=== PATIENT | female | born 1975 | race African-American/Black ===

== ENCOUNTER 2022-02-19 14:14 | Emergency (ER) | payer OTHER, SELFPAY ==
[2022-02-19 14:18] VITALS: BP 141/84; PULSE 104; RESP 20; TEMP 37; O2SAT 100; BMI 37.4
--- NOTE | 2022-02-19 14:22 | ED_ITS ---
HPI - General Adult General Chief complaint: Dyspnea <LAURIE Tran - Last Filed: 03/04/22 09:06> Stated complaint: Trouble breathing <LAURIE Tran - Last Filed: 03/04/22 09:06> Time Seen by Provider: 02/19/22 19:16 <LAURIE Tran - Last Filed: 03/04/22 09:06> Source: patient <Chase Bose MD - Last Filed: 03/04/22 17:18> Mode of arrival: ambulatory <Chase Bose MD - Last Filed: 03/04/22 17:18> Limitations: no limitations <Chase Bose MD - Last Filed: 03/04/22 17:18> History of Present Illness HPI narrative: Patient complaining of cough since she had COVID about 6 weeks ago going away no fever no chills feels short of breath with wheezing patient does have history of asthma used to use inhaler off and on but this time after COVID persistently coughing a lot <Chase Bose MD - Last Filed: 03/04/22 17:18> Related Data Home medications: Previous Rx's Medication Instructions Recorded albuterol sulfate 2.5 mg/3 mL 2.5 mg (3 mL) inhalation Q4-6H PRN 02/19/22 (0.083 %) solution for nebulization shortness of breath or wheezing #90 mL benzonatate 200 mg capsule 200 mg PO TID PRN cough #30 caps 02/19/22 cefuroxime axetil 500 mg tablet 500 mg PO BID #14 tabs 02/19/22 <LAURIE Tran - Last Filed: 03/04/22 09:06> Allergies/adverse reactions: Allergies Allergy/AdvReac Type Severity Reaction Status Date / Time food allergies Allergy Unknown Uncoded 06/12/17 00:00 Tetanus Toxoid Adsorbed Allergy Unknown Uncoded 06/12/17 00:00 <LAURIE Tran - Last Filed: 03/04/22 09:06> Review of Systems Review of Systems: Yes all other systems are reviewed and are negative <Chase Bose MD - Last Filed: 03/04/22 17:18> [facility] Social History Social History: Social History Alcohol intake: never Smoked in Last 30 Days: No Use of substances other than those prescribed or required for medical reasons: No Advance Directives: No Advance Directives Information Provided: No Patient : No <LAURIE Tran - Last Filed: 03/04/22 09:06> Physical Exam ED Vital Signs: Vital Signs - 24 hr 02/19/22 14:18 Temperature 98.6 F Pulse Rate 104 H Respiratory Rate 20 Blood Pressure 141/84 H Pulse Oximetry 100 Oxygen Delivery Method Room Air BMI result Body Mass Index 37.4 <LAURIE Tran - Last Filed: 03/04/22 09:06> Vital Signs - 24 hr 02/19/22 14:18 Temperature 98.6 F Pulse Rate 104 H Respiratory Rate 20 Blood Pressure 141/84 H Pulse Oximetry 100 Oxygen Delivery Method Room Air BMI result Body Mass Index 37.4 <Chase Bose MD - Last Filed: 03/04/22 17:18> Appearance: Alert. Oriented X3. No acute distress. Eyes: PERRLA, No Nystagmus ENT: Pharynx normal. Oral Mucosa moist Neck: Normal inspection. Neck supple. CVS: Normal heart rate and rhythm. Pulses normal. Respiratory: No respiratory distress. Equal air entry bilateral, bilateral prolonged expiration with frequent cough Abdomen: Soft and nontender. Bowel sounds are present, Skin: Skin warm and dry. Normal skin color. Normal skin turgor. Extremities: No lower extremity edema. No calf tenderness Neuro: Oriented X 3. <Chase Bose MD - Last Filed: 03/04/22 17:18> Course Course Course Narrative: EVA; 46-year-old female recently traveled from [place] on the presents to the ED for pleurisy for the past 3 days. Patient denies any fever or chills. Patient had COVID 6 weeks ago. Physical exam negative for any leg swelling or calf pain. Lungs are clear. EKG, troponin, BNP, D-dimer, and chest x-ray ordered. <LAURIE Tran - Last Filed: 03/04/22 09:06> Medications Administered Discontinued Medications Generic Name Dose Route Start Last Admin Trade Name Freq PRN Reason Stop Dose Admin Albuterol Sulfate 2 puff 02/19/22 19:50 02/19/22 20:17 Albuterol Sulfate 90 Mcg 8 Gm Inhaler INHALE 02/19/22 19:51 2 puff ONCE ONE Administration Cefuroxime Axetil 500 mg 02/19/22 19:49 02/19/22 20:16 Cefuroxime Axetil 500 Mg Tablet PO 02/19/22 19:50 500 mg ONCE ONE Administration Guaifenesin/Codeine Phosphate 10 ml 02/19/22 19:49 02/19/22 20:16 Guaifen/Codeine Sf 200/20/10ml 10 Ml Liquid PO 02/19/22 19:50 10 ml ONCE ONE Administration <LAURIE Tran - Last Filed: 03/04/22 09:06> Medications Administered Discontinued Medications Generic Name Dose Route Start Last Admin Trade Name Humzaq PRN Reason Stop Dose Admin Albuterol Sulfate 2 puff 02/19/22 19:50 02/19/22 20:17 Albuterol Sulfate 90 Mcg 8 Gm Inhaler INHALE 02/19/22 19:51 2 puff ONCE ONE Administration Cefuroxime Axetil 500 mg 02/19/22 19:49 02/19/22 20:16 Cefuroxime Axetil 500 Mg Tablet PO 02/19/22 19:50 500 mg ONCE ONE Administration Guaifenesin/Codeine Phosphate 10 ml 02/19/22 19:49 02/19/22 20:16 Guaifen/Codeine Sf 200/20/10ml 10 Ml Liquid PO 02/19/22 19:50 10 ml ONCE ONE Administration <Chase Bose MD - Last Filed: 03/04/22 17:18> Medical Decision Making Medical Decision Making [facility] Narrative: Patient include acute bronchitis with history of asthma will discharge patient home on Ceftin, inhaler and cough drops <Chase Bose MD - Last Filed: 03/04/22 17:18> Lab Data MDM Lab Attestation statement: I reviewed the patient's lab results. <Chase Bose MD - Last Filed: 03/04/22 17:18> Result Diagrams: 02/19/22 14:53 02/19/22 14:53 <LAURIE Tran - Last Filed: 03/04/22 09:06> Labs: Lab Results 02/19/22 02/19/22 02/19/22 Range/Units 14:49 14:53 14:53 WBC 3.5 L (4.8-10.8) X10*3/uL RBC 4.60 (4.20-5.50) X10*6/uL Hgb 11.6 L (12.0-16.0) g/dl Hct 36.1 L (37.0-47.0) % MCV 78.5 L (80.0-98.0) fL MCH 25.2 L (27.0-33.0) pg MCHC 32.1 (31.0-35.0) g/dl RDW 15.3 (11.0-16.0) % Plt Count 308 (160-400) X10*3/uL MPV 9.3 L (9.4-12.3) fL Immature Gran % (Auto) 0.0 (0.0-0.4) % Neut % (Auto) 42.3 L (45-73) % Lymph % (Auto) 39.2 (20-40) % [place] % (Auto) 14.8 H (2-11) % Eos % (Auto) 3.1 (0-4) % Baso % (Auto) 0.6 (0-2) % Lymph # (Auto) 1.4 (1.2-4.9) X10*3/uL [place] # (Auto) 0.5 (0.1-1.2) X10*3/uL Eos # (Auto) 0.1 (0.0-0.4) X10*3/uL Baso # (Auto) 0.0 (0.0-0.2) X10*3/uL Abs Immat Gran (auto) 0.00 (0.00-0.03) X10*3/uL Absolute Neuts (auto) 1.5 L (2.0-8.3) x10*3/uL Absolute Nucleated RBC 0.000 (0.0-0.012) X10*3/uL Nucleated RBC % (auto) 0.0 (0.0-0.2) /100WBC PT 11.9 (10.0-13.1) SEC INR 1.0 (0.9-1.1) APTT 27.1 (26.0-36.4) SEC D-Dimer High Sensitivty 256 NG/ML Sodium (135-145) mmol/L Potassium (3.3-5.1) mmol/L Chloride (96-108) mmol/L Carbon Dioxide (22-29) mmol/L Anion Gap (12-20) BUN (9-16) mg/dL Creatinine (0.5-1.4) mg/dL Estim Creat Clear Calc Estimated GFR Random Glucose (60-115) mg/dL Calcium (8.4-10.2) mg/dL Total Bilirubin (0.0-1.0) mg/dL AST (5-31) U/L ALT (0-31) U/L Alkaline Phosphatase (39-117) U/L Troponin I High Sens (<3.5-17.0) ng/L B-Natriuretic Peptide (<100) pg/mL Total Protein (6.5-8.0) g/dL Albumin (3.5-5.0) g/dL Influenza Type A (PCR) NEGATIVE (Negative) Influenza Type B (PCR) NEGATIVE (Negative) RSV RNA Qual (PCR) NEGATIVE (Negative) SARS-CoV-2 RNA (RT-PCR) NEGATIVE (Negative) 02/19/22 02/19/22 02/19/22 Range/Units 14:53 14:53 14:54 WBC (4.8-10.8) X10*3/uL RBC (4.20-5.50) X10*6/uL Hgb (12.0-16.0) g/dl Hct (37.0-47.0) % MCV (80.0-98.0) fL MCH (27.0-33.0) pg MCHC (31.0-35.0) g/dl RDW (11.0-16.0) % Plt Count (160-400) X10*3/uL MPV (9.4-12.3) fL Immature Gran % (Auto) (0.0-0.4) % Neut % (Auto) (45-73) % Lymph % (Auto) (20-40) % [place] % (Auto) (2-11) % Eos % (Auto) (0-4) % Baso % (Auto) (0-2) % Lymph # (Auto) (1.2-4.9) X10*3/uL [place] # (Auto) (0.1-1.2) X10*3/uL Eos # (Auto) (0.0-0.4) X10*3/uL Baso # (Auto) (0.0-0.2) X10*3/uL Abs Immat Gran (auto) (0.00-0.03) X10*3/uL Absolute Neuts (auto) (2.0-8.3) x10*3/uL Absolute Nucleated RBC (0.0-0.012) X10*3/uL Nucleated RBC % (auto) (0.0-0.2) /100WBC PT (10.0-13.1) SEC INR (0.9-1.1) APTT (26.0-36.4) SEC D-Dimer High Sensitivty NG/ML Sodium 137 (135-145) mmol/L Potassium 3.9 (3.3-5.1) mmol/L Chloride 103 (96-108) mmol/L Carbon Dioxide 27 (22-29) mmol/L Anion Gap 11 L (12-20) BUN 13 (9-16) mg/dL Creatinine 0.83 (0.5-1.4) mg/dL Estim Creat Clear Calc 98.1 Estimated GFR > 60 Random Glucose 115 (60-115) mg/dL Calcium 9.4 (8.4-10.2) mg/dL Total Bilirubin 0.3 (0.0-1.0) mg/dL AST 20 (5-31) U/L ALT 18 (0-31) U/L Alkaline Phosphatase 87 (39-117) U/L Troponin I High Sens < 3.5 (<3.5-17.0) ng/L B-Natriuretic Peptide < 10 (<100) pg/mL Total Protein 6.9 (6.5-8.0) g/dL Albumin 4.2 (3.5-5.0) g/dL Influenza Type A (PCR) (Negative) Influenza Type B (PCR) (Negative) RSV RNA Qual (PCR) (Negative) SARS-CoV-2 RNA (RT-PCR) (Negative) <LAURIE Tran - Last Filed: 03/04/22 09:06> Lab Results 02/19/22 02/19/22 02/19/22 Range/Units 14:49 14:53 14:53 WBC 3.5 L (4.8-10.8) X10*3/uL RBC 4.60 (4.20-5.50) X10*6/uL Hgb 11.6 L (12.0-16.0) g/dl Hct 36.1 L (37.0-47.0) % MCV 78.5 L (80.0-98.0) fL MCH 25.2 L (27.0-33.0) pg MCHC 32.1 (31.0-35.0) g/dl RDW 15.3 (11.0-16.0) % Plt Count 308 (160-400) X10*3/uL MPV 9.3 L (9.4-12.3) fL Immature Gran % (Auto) 0.0 (0.0-0.4) % Neut % (Auto) 42.3 L (45-73) % Lymph % (Auto) 39.2 (20-40) % [place] % (Auto) 14.8 H (2-11) % Eos % (Auto) 3.1 (0-4) % Baso % (Auto) 0.6 (0-2) % Lymph # (Auto) 1.4 (1.2-4.9) X10*3/uL [place] # (Auto) 0.5 (0.1-1.2) X10*3/uL Eos # (Auto) 0.1 (0.0-0.4) X10*3/uL Baso # (Auto) 0.0 (0.0-0.2) X10*3/uL Abs Immat Gran (auto) 0.00 (0.00-0.03) X10*3/uL Absolute Neuts (auto) 1.5 L (2.0-8.3) x10*3/uL Absolute Nucleated RBC 0.000 (0.0-0.012) X10*3/uL Nucleated RBC % (auto) 0.0 (0.0-0.2) /100WBC PT 11.9 (10.0-13.1) SEC INR 1.0 (0.9-1.1) APTT 27.1 (26.0-36.4) SEC D-Dimer High Sensitivty 256 NG/ML Sodium (135-145) mmol/L Potassium (3.3-5.1) mmol/L Chloride (96-108) mmol/L Carbon Dioxide (22-29) mmol/L Anion Gap (12-20) BUN (9-16) mg/dL Creatinine (0.5-1.4) mg/dL Estim Creat Clear Calc Estimated GFR Random Glucose (60-115) mg/dL Calcium (8.4-10.2) mg/dL Total Bilirubin (0.0-1.0) mg/dL AST (5-31) U/L ALT (0-31) U/L Alkaline Phosphatase (39-117) U/L Troponin I High Sens (<3.5-17.0) ng/L B-Natriuretic Peptide (<100) pg/mL Total Protein (6.5-8.0) g/dL Albumin (3.5-5.0) g/dL Influenza Type A (PCR) NEGATIVE (Negative) Influenza Type B (PCR) NEGATIVE (Negative) RSV RNA Qual (PCR) NEGATIVE (Negative) SARS-CoV-2 RNA (RT-PCR) NEGATIVE (Negative) 02/19/22 02/19/22 02/19/22 Range/Units 14:53 14:53 14:54 WBC (4.8-10.8) X10*3/uL RBC (4.20-5.50) X10*6/uL Hgb (12.0-16.0) g/dl Hct (37.0-47.0) % MCV (80.0-98.0) fL MCH (27.0-33.0) pg MCHC (31.0-35.0) g/dl RDW (11.0-16.0) % Plt Count (160-400) X10*3/uL MPV (9.4-12.3) fL Immature Gran % (Auto) (0.0-0.4) % Neut % (Auto) (45-73) % Lymph % (Auto) (20-40) % [place] % (Auto) (2-11) % Eos % (Auto) (0-4) % Baso % (Auto) (0-2) % Lymph # (Auto) (1.2-4.9) X10*3/uL [place] # (Auto) (0.1-1.2) X10*3/uL Eos # (Auto) (0.0-0.4) X10*3/uL Baso # (Auto) (0.0-0.2) X10*3/uL Abs Immat Gran (auto) (0.00-0.03) X10*3/uL Absolute Neuts (auto) (2.0-8.3) x10*3/uL Absolute Nucleated RBC (0.0-0.012) X10*3/uL Nucleated RBC % (auto) (0.0-0.2) /100WBC PT (10.0-13.1) SEC INR (0.9-1.1) APTT (26.0-36.4) SEC D-Dimer High Sensitivty NG/ML Sodium 137 (135-145) mmol/L Potassium 3.9 (3.3-5.1) mmol/L Chloride 103 (96-108) mmol/L Carbon Dioxide 27 (22-29) mmol/L Anion Gap 11 L (12-20) BUN 13 (9-16) mg/dL Creatinine 0.83 (0.5-1.4) mg/dL Estim Creat Clear Calc 98.1 Estimated GFR > 60 Random Glucose 115 (60-115) mg/dL Calcium 9.4 (8.4-10.2) mg/dL Total Bilirubin 0.3 (0.0-1.0) mg/dL AST 20 (5-31) U/L ALT 18 (0-31) U/L Alkaline Phosphatase 87 (39-117) U/L Troponin I High Sens < 3.5 (<3.5-17.0) ng/L B-Natriuretic Peptide < 10 (<100) pg/mL Total Protein 6.9 (6.5-8.0) g/dL Albumin 4.2 (3.5-5.0) g/dL Influenza Type A (PCR) (Negative) Influenza Type B (PCR) (Negative) RSV RNA Qual (PCR) (Negative) SARS-CoV-2 RNA (RT-PCR) (Negative) <Chase Bose MD - Last Filed: 03/04/22 17:18> Discharge Plan Discharge Clinical Impression: Acute bronchitis <LAURIE Tran - Last Filed: 03/04/22 09:06> Patient Disposition: Home, Self-Care <LAURIE Tran - Last Filed: 03/04/22 09:06> Instructions: Acute Bronchitis (ED) <LAURIE Tran - Last Filed: 03/04/22 09:06> Additional Instructions: Take antibiotics and cough syrup as prescribed Your COVID/RSV/influenza negative Albuterol inhaler for wheezing Report to the ER if worsening of shortness of breath <LAURIE Tran - Last Filed: 03/04/22 09:06> Prescriptions: New albuterol sulfate 2.5 mg /3 mL (0.083 %) solution for nebulization 2.5 mg inhalation Q4-6H PRN (Reason: shortness of breath or wheezing) Qty: 90 0RF benzonatate 200 mg capsule 200 mg PO TID PRN (Reason: cough) Qty: 30 0RF cefuroxime axetil 500 mg tablet 500 mg PO BID Qty: 14 0RF <LAURIE Tran - Last Filed: 03/04/22 09:06> Interventions: ED Discharge Assessment Last Done: 02/19/22 20:18 <LAURIE Tran - Last Filed: 03/04/22 09:06> Discharge Date/Time: 02/19/22 20:20 <LAURIE Tran - Last Filed: 03/04/22 09:06>
--- NOTE | 2022-02-19 14:23 | ECG_ITS ---
Test Reason : SOB Blood Pressure : / mmHG Vent. Rate : 088 BPM Atrial Rate : 088 BPM P-R Int : 146 ms QRS Dur : 082 ms QT Int : 350 ms P-R-T Axes : 067 002 006 degrees QTc Int : 423 ms Normal sinus rhythm with sinus arrhythmia Normal ECG No previous ECGs available Referred By: Aldair Batres Electronically Signed By:Francis Pradhan
[2022-02-19 15:01] LABS: MANUAL DIFF FLAG NO
[2022-02-19 15:04] LABS: Basophils Percent Auto 0.6 % (0-2); Eosinophils Absolute Auto 0.1 X10*3/uL (0.0-0.4); Eosinophils Percent Auto 3.1 % (0-4); Hematocrit 36.1 % (37.0-47.0); Hemoglobin 11.6 g/dl (12.0-16.0); Lymphocytes Absolute Auto 1.4 X10*3/uL (1.2-4.9); Lymphocytes Percent Auto 39.2 % (20-40); Mean Corpuscular HGB Conc 32.1 g/dl (31.0-35.0); Mean Corpuscular Hemoglobin 25.2 pg (27.0-33.0); Mean Corpuscular Volume 78.5 fL (80.0-98.0); Mean Platelet Volume 9.3 fL (9.4-12.3); Monocytes Absolute Auto 0.5 X10*3/uL (0.1-1.2); Monocytes Percent Auto 14.8 % (2-11); Neutrophils Absolute Auto 1.5 x10*3/uL (2.0-8.3); Neutrophils Percent Auto 42.3 % (45-73); Platelet Count 308 X10*3/uL (160-400); Red Cell Distribution Width 15.3 % (11.0-16.0); White Blood Count 3.5 X10*3/uL (4.8-10.8)
[2022-02-19 15:11] LABS: Prothrombin Time 11.9 SEC (10.0-13.1)
[2022-02-19 15:13] LABS: D Dimer High Sensitivity 256 NG/ML; Partial Thromboplastin Time 27.1 SEC (26.0-36.4)
[2022-02-19 15:21] LABS: Alanine Aminotransferase 18 U/L (0-31); Albumin Level 4.2 g/dL (3.5-5.0); Alkaline Phosphatase 87 U/L (39-117); Anion Gap 11 (12-20); Aspartate Amino Transferase 20 U/L (5-31); Bilirubin Total 0.3 mg/dL (0.0-1.0); Blood Urea Nitrogen 13 mg/dL (9-16); Calcium 9.4 mg/dL (8.4-10.2); Carbon Dioxide 27 mmol/L (22-29); Chloride 103 mmol/L (96-108); Creatinine Clr Calc Pharmacy 98.1; Estimated Glomerular Filt Rate > 60; Glucose Random 115 mg/dL (60-115); Potassium 3.9 mmol/L (3.3-5.1); Sodium 137 mmol/L (135-145); Total Protein 6.9 g/dL (6.5-8.0)
[2022-02-19 15:26] LABS: B Type Natriuretic Peptide < 10 pg/mL (<100)
[2022-02-19 15:26] LABS: Troponin-I High Sensitivity < 3.5 ng/L (<3.5-17.0)
[2022-02-19 15:48] LABS: Influenza A PCR NEGATIVE (Negative); Influenza B PCR NEGATIVE (Negative); Resp Syncy Virus RNA Qual PCR NEGATIVE (Negative); SARS COV2 PCR INHOUSE NEGATIVE (Negative)
[2022-02-19 19:47] VITALS: BP 121/77; PULSE 93; RESP 18; O2SAT 100
--- NOTE | 2022-02-19 19:48 | ED.URI ---
HPI - URI/Sore Throat General Chief Complaint: Dyspnea Stated Complaint: Trouble breathing Time Seen by Provider: 02/19/22 19:16 Source: patient Mode of arrival: ambulatory Limitations: no limitations History of Present Illness HPI Narrative: Patient with history of MS on monoclonal antibodies treatment recently came from [place] last night been sick for last 3 - 4 days with cold symptoms and cough and chest tightness no fever or chills cough is mostly dry occasionally she gets mucopurulent phlegm Related Data Previous Rx's Medication Instructions Recorded albuterol sulfate 2.5 mg/3 mL 2.5 mg (3 mL) inhalation Q4-6H PRN 02/19/22 (0.083 %) solution for nebulization shortness of breath or wheezing #90 mL benzonatate 200 mg capsule 200 mg PO TID PRN cough #30 caps 02/19/22 cefuroxime axetil 500 mg tablet 500 mg PO BID #14 tabs 02/19/22 Allergies Allergy/AdvReac Type Severity Reaction Status Date / Time food allergies Allergy Unknown Uncoded 06/12/17 00:00 Tetanus Toxoid Adsorbed Allergy Unknown Uncoded 06/12/17 00:00 Review of Systems Review of Systems: Yes all other systems are reviewed and are negative PMFSH Social History Social History Alcohol intake: never Smoked in Last 30 Days: No Use of substances other than those prescribed or required for medical reasons: No Advance Directives: No Advance Directives Information Provided: No Patient : No Physical Exam Vital Signs: Vital Signs: Last Vital Signs Temp 98.6 F 02/19/22 14:18 Pulse 93 02/19/22 19:47 Resp 18 02/19/22 19:47 BP 121/77 02/19/22 19:47 Pulse Ox 100 02/19/22 19:47 O2 Del Method 02/19/22 19:47 BMI result Body Mass Index 37.4 Appearance: Alert. Oriented X3. No acute distress. Eyes: PERRLA, No Nystagmus ENT: Pharynx normal. Oral Mucosa moist clear rhinorrhea Neck: Normal inspection. Neck supple. CVS: Normal heart rate and rhythm. Pulses normal. Respiratory: No respiratory distress. Equal air entry bilateral, no wheezing/rales/rhonchi prolonged expiration Abdomen: Soft and nontender. Bowel sounds are present, no mass palpable, no CVA tenderness Skin: Skin warm and dry. Normal skin color. Normal skin turgor. Extremities: No lower extremity edema. No calf tenderness Neuro: Oriented X 3. No motor deficit. No sensory deficit.No cerebellar signs , cranial nerves II-XII intact Medications Administered Discontinued Medications Generic Name Dose Route Start Last Admin Trade Name Humzaq PRN Reason Stop Dose Admin Albuterol Sulfate 2 puff 02/19/22 19:50 02/19/22 20:17 Albuterol Sulfate 90 Mcg 8 Gm Inhaler INHALE 02/19/22 19:51 2 puff ONCE ONE Administration Cefuroxime Axetil 500 mg 02/19/22 19:49 02/19/22 20:16 Cefuroxime Axetil 500 Mg Tablet PO 02/19/22 19:50 500 mg ONCE ONE Administration Guaifenesin/Codeine Phosphate 10 ml 02/19/22 19:49 02/19/22 20:16 Guaifen/Codeine Sf 200/20/10ml 10 Ml Liquid PO 02/19/22 19:50 10 ml ONCE ONE Administration Medical Decision Making Medical Decision Making MDM Narrative: Patient with him acute bronchitis immunocompromised will give her a course of Ceftin and Tessalon Perles Lab Data MDM Lab Attestation statement: I reviewed the patient's lab results. Result Diagrams: 02/19/22 14:53 02/19/22 14:53 Labs: Lab Results 02/19/22 02/19/22 02/19/22 Range/Units 14:49 14:53 14:53 WBC 3.5 L (4.8-10.8) X10*3/uL RBC 4.60 (4.20-5.50) X10*6/uL Hgb 11.6 L (12.0-16.0) g/dl Hct 36.1 L (37.0-47.0) % MCV 78.5 L (80.0-98.0) fL MCH 25.2 L (27.0-33.0) pg MCHC 32.1 (31.0-35.0) g/dl RDW 15.3 (11.0-16.0) % Plt Count 308 (160-400) X10*3/uL MPV 9.3 L (9.4-12.3) fL Immature Gran % (Auto) 0.0 (0.0-0.4) % Neut % (Auto) 42.3 L (45-73) % Lymph % (Auto) 39.2 (20-40) % [place] % (Auto) 14.8 H (2-11) % Eos % (Auto) 3.1 (0-4) % Baso % (Auto) 0.6 (0-2) % Lymph # (Auto) 1.4 (1.2-4.9) X10*3/uL [place] # (Auto) 0.5 (0.1-1.2) X10*3/uL Eos # (Auto) 0.1 (0.0-0.4) X10*3/uL Baso # (Auto) 0.0 (0.0-0.2) X10*3/uL Abs Immat Gran (auto) 0.00 (0.00-0.03) X10*3/uL Absolute Neuts (auto) 1.5 L (2.0-8.3) x10*3/uL Absolute Nucleated RBC 0.000 (0.0-0.012) X10*3/uL Nucleated RBC % (auto) 0.0 (0.0-0.2) /100WBC PT 11.9 (10.0-13.1) SEC INR 1.0 (0.9-1.1) APTT 27.1 (26.0-36.4) SEC D-Dimer High Sensitivty 256 NG/ML Sodium (135-145) mmol/L Potassium (3.3-5.1) mmol/L Chloride (96-108) mmol/L Carbon Dioxide (22-29) mmol/L Anion Gap (12-20) BUN (9-16) mg/dL Creatinine (0.5-1.4) mg/dL Estim Creat Clear Calc Estimated GFR Random Glucose (60-115) mg/dL Calcium (8.4-10.2) mg/dL Total Bilirubin (0.0-1.0) mg/dL AST (5-31) U/L ALT (0-31) U/L Alkaline Phosphatase (39-117) U/L Troponin I High Sens (<3.5-17.0) ng/L B-Natriuretic Peptide (<100) pg/mL Total Protein (6.5-8.0) g/dL Albumin (3.5-5.0) g/dL Influenza Type A (PCR) NEGATIVE (Negative) Influenza Type B (PCR) NEGATIVE (Negative) RSV RNA Qual (PCR) NEGATIVE (Negative) SARS-CoV-2 RNA (RT-PCR) NEGATIVE (Negative) 02/19/22 02/19/22 02/19/22 Range/Units 14:53 14:53 14:54 WBC (4.8-10.8) X10*3/uL RBC (4.20-5.50) X10*6/uL Hgb (12.0-16.0) g/dl Hct (37.0-47.0) % MCV (80.0-98.0) fL MCH (27.0-33.0) pg MCHC (31.0-35.0) g/dl RDW (11.0-16.0) % Plt Count (160-400) X10*3/uL MPV (9.4-12.3) fL Immature Gran % (Auto) (0.0-0.4) % Neut % (Auto) (45-73) % Lymph % (Auto) (20-40) % [place] % (Auto) (2-11) % Eos % (Auto) (0-4) % Baso % (Auto) (0-2) % Lymph # (Auto) (1.2-4.9) X10*3/uL [place] # (Auto) (0.1-1.2) X10*3/uL Eos # (Auto) (0.0-0.4) X10*3/uL Baso # (Auto) (0.0-0.2) X10*3/uL Abs Immat Gran (auto) (0.00-0.03) X10*3/uL Absolute Neuts (auto) (2.0-8.3) x10*3/uL Absolute Nucleated RBC (0.0-0.012) X10*3/uL Nucleated RBC % (auto) (0.0-0.2) /100WBC PT (10.0-13.1) SEC INR (0.9-1.1) APTT (26.0-36.4) SEC D-Dimer High Sensitivty NG/ML Sodium 137 (135-145) mmol/L Potassium 3.9 (3.3-5.1) mmol/L Chloride 103 (96-108) mmol/L Carbon Dioxide 27 (22-29) mmol/L Anion Gap 11 L (12-20) BUN 13 (9-16) mg/dL Creatinine 0.83 (0.5-1.4) mg/dL Estim Creat Clear Calc 98.1 Estimated GFR > 60 Random Glucose 115 (60-115) mg/dL Calcium 9.4 (8.4-10.2) mg/dL Total Bilirubin 0.3 (0.0-1.0) mg/dL AST 20 (5-31) U/L ALT 18 (0-31) U/L Alkaline Phosphatase 87 (39-117) U/L Troponin I High Sens < 3.5 (<3.5-17.0) ng/L B-Natriuretic Peptide < 10 (<100) pg/mL Total Protein 6.9 (6.5-8.0) g/dL Albumin 4.2 (3.5-5.0) g/dL Influenza Type A (PCR) (Negative) Influenza Type B (PCR) (Negative) RSV RNA Qual (PCR) (Negative) SARS-CoV-2 RNA (RT-PCR) (Negative) Discharge Plan Discharge Clinical Impression: Acute bronchitis Patient Disposition: Home, Self-Care Instructions: Acute Bronchitis (ED) Additional Instructions: Take antibiotics and cough syrup as prescribed Your COVID/RSV/influenza negative Albuterol inhaler for wheezing Report to the ER if worsening of shortness of breath Prescriptions: New albuterol sulfate 2.5 mg /3 mL (0.083 %) solution for nebulization 2.5 mg inhalation Q4-6H PRN (Reason: shortness of breath or wheezing) Qty: 90 0RF benzonatate 200 mg capsule 200 mg PO TID PRN (Reason: cough) Qty: 30 0RF cefuroxime axetil 500 mg tablet 500 mg PO BID Qty: 14 0RF Interventions: ED Discharge Assessment Last Done: 02/19/22 20:18 Discharge Date/Time: 02/19/22 20:20
--- NOTE | 2022-02-19 20:20 | PC.NURSE ---
d/c instructions given and explained, ambulates safely and independently, no apparent distress, speaks in full sentences without exertion
== END 2022-02-19 20:20 | disposition home or self-care (01) ==
PROVIDERS: Physician Assistant; Emergency Provider Internal Medicine
DX: J20.9 Acute bronchitis, unspecified (principal); R06.00 Dyspnea, unspecified; Z20.828 Contact with and (suspected) exposure to other viral communicable diseases; G35 Multiple sclerosis; Z79.899 Other long term (current) drug therapy
CPT/HCPCS: 0241U; 71045; 80053; 83880; 84484; 85025; 85379; 85610; 85730; 93005; 94640; 99284; 99285